=== PATIENT | female | born 1955 | race African-American/Black ===

== ENCOUNTER → 2020-10-27 | Outpatient (CLI) | payer OTHER ==
--- NOTE | 2020-10-27 14:42 | RAD ---
NM PET/CT SKULL BASE TO MID THIGH Clinical Indication: Lung mass Comparison: None. Technique: Patient blood glucose at the time of injection is 75 mg/dL. The patient was administered 1 2.2 mCi of F-18 FDG intravenously. The patient rested quietly during a 60 minute uptake period. Then PET imaging from the skull base to the upper thighs was performed. A noncontrast CT was acquired over this same area. The CT is for attenuation correction and anatomic localization, it is not of diagnos tic quality and is not intended to diagnose disease independently of the PET. PQRS Compliance Statement: One or more of the following individualized dose reduction techniques were utilized for this examinat ion: 1. Automated exposure control 2. Adjustment of the mA and/or kV according to patient size 3. Use of iterative reconstruction technique Findings: Background: Mediastinal SUV max: 2.26 Liver SUV max: 2.93 Head and neck: There is no evidence of FDG-avid disease. Chest: Right perihilar mass measures 4.3 x 3.2 cm with SUV max 11.9. The mass abuts the mediastinum. There i s compression of the right upper lobe anterior bronchus contributing to partial atelectasis. Calcified left lower lobe pulmonary nodule, likely prior granulomatous disease. Coronary artery calci fications. Small mediastinal lymph nodes without significant metabolic activity. Abdomen and pelvis: There is no evidence of FDG-avid disease. Small hiatal hernia. The liver, spleen, adrenal glands, pancreas and gallbladder are unremarkable. Un remarkable noncontrast appearance of the kidneys. No hydronephrosis. Normal appendix. Physiologic uptake within the right colon. No evidence of bowel obstruction. No path ologic lymphadenopathy. No ascites. Prior hysterectomy. Mild atheromatous plaque throughout the nonan eurysmal abdominal aorta. Musculoskeletal: Multilevel lumbar stenosis. Grade 1 anterolisthesis L4 on L5. Multilevel cervical spondylosis. IMPRESSION: 1. Right perihilar hypermetabolic mass, concerning for malignancy. 2. Partial right upper lobe atelectasis. Electronically signed by: Ruperto King DO (10/27/2020 2:39 PM) [id number]
== END ==
LOC: PETSC 09:42
PROVIDERS: ATTEND Internal Medicine Critical Care Medicine
DX: R91.8 Other nonspecific abnormal finding of lung field (principal); J98.11 Atelectasis; K44.9 Diaphragmatic hernia without obstruction or gangrene; M48.061 Spinal stenosis, lumbar region without neurogenic claudication
CPT/HCPCS: 78815; A9552

== ENCOUNTER → 2020-12-12 | Outpatient (CLI) | payer OTHER ==
[2020-12-12 11:49] LABS: BASO % 0 % (0-3); EOS # 0.2 x10^3/uL (0.0-0.7); EOS % 4 % (0-3); HEMATOCRIT 31.2 % (36.0-47.0); HEMOGLOBIN 10.3 g/dL (12.0-15.5); LYMPH # 0.5 x10^3/uL (1.0-4.8); LYMPH % 9 % (24-48); MEAN CORPUSCULAR HEMOGLOBIN 26 pg (25-35); MEAN CORPUSCULAR HGB CONC 33 g/dL (31-37); MEAN CORPUSCULAR VOLUME 78 fL (79-100); MONO # 0.5 x10^3/uL (0.0-1.1); MONO % 8 % (0-9); NEUT # 4.6 x10^3/uL (1.8-7.7); NEUT % 78 % (31-73); PLATELET COUNT 292 x10^3/uL (140-400); RED BLOOD COUNT 4.03 x10^6/uL (3.50-5.40); RED CELL DISTRIBUTION WIDTH 19.5 % (11.5-14.5); WHITE BLOOD COUNT 5.9 x10^3/uL (4.0-11.0)
[2020-12-12 11:57] LABS: CALCIUM 8.5 mg/dL (8.5-10.1); CREATININE 0.7 mg/dL (0.6-1.0); GFR 101.6; POTASSIUM 3.7 mmol/L (3.5-5.1)
[2020-12-12 12:09] LABS: ALBUMIN 3.6 g/dL (3.4-5.0); ALBUMIN/GLOBULIN RATIO 1.3 (1.0-1.7); TOTAL BILIRUBIN 0.4 mg/dL (0.2-1.0); TOTAL PROTEIN 6.3 g/dL (6.4-8.2)
== END ==
LOC: ONCLAB 11:03
PROVIDERS: ATTEND Internal Medicine Hematology & Oncology
DX: C34.11 Malignant neoplasm of upper lobe, right bronchus or lung (principal); Z85.42 Personal history of malignant neoplasm of other parts of uterus
CPT/HCPCS: 36415; 80053; 85025; 86304